=== PATIENT | male | born 1960 | race Caucasian/White ===

== ENCOUNTER 2019-01-12 19:46 | Emergency (ER) | payer MEDICAID ==
[~2019-01-12] VITALS: Ht 170.2 cm; Wt 78.9 kg
[2019-01-12 19:48] VITALS: BP 128/74
--- NOTE | 2019-01-12 19:48 | NUR ---
PT TAKEN TO BED 08 VIA GURNEY. AMBULATED TO BED WITH STEADY GAIT.
--- NOTE | 2019-01-12 20:01 | NUR ---
58 Y/O MALE BIB [facility]. PRESENTS TO ED, C/O ANXIETY AND HYPERGLYCEMIA, 348 UPON ARRIVAL. PT STATES HE STARTED HAVING ANXIETY WITH CHEST PAIN 5/10 AT WORK. PAIN DOES NOT RADIATE. PT DENIES ANY SOB/RESPIRATORY DISTRESS. PT STABLE AT ARRIVAL. ERMD AWARE. WILL CONTINUE TO MONITOR.
[2019-01-12] MEDS ORDERED: NACL 0.9% 1,000 ML IV ONE (20:40)
[2019-01-12] MEDS ORDERED: KETOROLAC 30 MG/ML VIAL IVP ONE (20:40)
[2019-01-12 21:04] LABS: BASOPHILS # (AUTO) 0.1 K/uL (0.00-0.22); BASOPHILS % (AUTO) 0.9 % (0.0-2.0); EOSINOPHILS # (AUTO) 0.2 K/uL (0-0.4); EOSINOPHILS % (AUTO) 2.8 % (0.0-4.0); HEMATOCRIT 40.4 % (36-52); HEMOGLOBIN 14.1 g/dL (12.0-18.0); LYMPHOCYTES # (AUTO) 2.4 K/uL (2.0-11.5); LYMPHOCYTES % (AUTO) 36.3 % (20.5-51.1); MEAN CORPUSCULAR HEMOGLOBIN 33 pg (27-31); MEAN CORPUSCULAR HGB CONC 35 g/dL (33-37); MONOCYTES # (AUTO) 0.6 K/uL (0.8-1.0); MONOCYTES % (AUTO) 9.8 % (1.7-9.3); NEUTROPHILS # (AUTO) 3.3 K/uL (1.8-7.7); NEUTROPHILS % (AUTO) 50.2 % (42.2-75.2); PLATELET COUNT (AUTO) 215 K/uL (140-450); RED BLOOD CELL COUNT(AUTO) 4.34 MIL/uL (4.20-6.10); RED CELL DISTRIBUTION WIDTH 12.8 % (11.6-13.7); WHITE BLOOD COUNT (AUTO) 6.5 K/uL (4.8-10.8)
[2019-01-12 21:27] LABS: ANION GAP 12.7 (8-16); CARBON DIOXIDE 26.6 mmol/L (21-32); CREATININE 0.8 mg/dL (0.7-1.3); POTASSIUM 4.3 mmol/L (3.5-5.1)
[2019-01-12 21:33] LABS: ALBUMIN 3.6 g/dL (3.4-5.0); TOTAL BILIRUBIN 0.4 mg/dL (0.0-1.0)
[2019-01-12] MEDS ORDERED: INSULIN REGULAR, HUMAN 100 UNIT/ML VIAL IVP ONE (22:00)
[2019-01-12 22:10] VITALS: BP 121/77
--- NOTE | 2019-01-12 22:10 | NUR ---
PT DISCHARGED WITH PAPERWORK. RX MOTRIN FOR PAIN. EDUCATED PT REGARDING MEDICATIONS AND S/E. EDUCATED PT REGARDING D/C DIAGNOSIS AND INSTRUCTIONS. PT VERBALIZED UNDERSTANDING OF TEACHING. TOLD PT TO FOLLOW UP WITH PCP AND WHEN TO RETURN TO ED. PT VSS. ALL QUESTIONS ANSWERED.
== END 2019-01-12 22:10 | disposition home or self-care (01) ==
LOC: MED 19:46
DX: E11.65 Type 2 diabetes mellitus with hyperglycemia (principal); M25.561 Pain in right knee; R07.89 Other chest pain; R10.84 Generalized abdominal pain
CPT/HCPCS: 36415; 71045; 80053; 84484; 85025; 96361; 96374; 96375; 99284; J1815; J1885; J7030; 93005

== ENCOUNTER 2019-02-01 11:07 | Emergency (ER) | payer MEDICAID ==
[~2019-02-01] VITALS: Ht 167.6 cm; Wt 78.5 kg
[2019-02-01 11:07] VITALS: BP 132/88
--- NOTE | 2019-02-01 11:07 | NUR ---
Patient BIBA ALS, transferred to bed 9. RN evaluating patient at bedside.
--- NOTE | 2019-02-01 11:15 | NUR ---
Assumed patient care, nursing assessment completed. Patient c/o sudden onset CP that started this morning, accompanied with palpitations.
--- NOTE | 2019-02-01 11:17 | NUR ---
Dr. Miles is evaluating the patient at bedside.
[2019-02-01] MEDS ORDERED: ASPIRIN 325 MG TAB PO ONE (11:30)
--- NOTE | 2019-02-01 11:32 | NUR ---
build technician at bedside.
[2019-02-01 12:20] LABS: BASOPHILS # (AUTO) 0.1 K/uL (0.00-0.22); BASOPHILS % (AUTO) 1.1 % (0.0-2.0); EOSINOPHILS # (AUTO) 0.1 K/uL (0-0.4); HEMATOCRIT 42.8 % (36-52); HEMOGLOBIN 14.9 g/dL (12.0-18.0); LYMPHOCYTES # (AUTO) 2.3 K/uL (2.0-11.5); LYMPHOCYTES % (AUTO) 35.3 % (20.5-51.1); MEAN CORPUSCULAR HEMOGLOBIN 32 pg (27-31); MEAN CORPUSCULAR HGB CONC 35 g/dL (33-37); MEAN CORPUSCULAR VOLUME 92.9 fL (80-94); MONOCYTES # (AUTO) 0.6 K/uL (0.8-1.0); NEUTROPHILS # (AUTO) 3.4 K/uL (1.8-7.7); NEUTROPHILS % (AUTO) 52.6 % (42.2-75.2); PLATELET COUNT (AUTO) 220 K/uL (140-450); RED BLOOD CELL COUNT(AUTO) 4.61 MIL/uL (4.20-6.10); RED CELL DISTRIBUTION WIDTH 12.4 % (11.6-13.7); WHITE BLOOD COUNT (AUTO) 6.4 K/uL (4.8-10.8)
[2019-02-01 12:21] LABS: ANION GAP 11.7 (8-16); CARBON DIOXIDE 29.2 mmol/L (21-32); CREATININE 0.7 mg/dL (0.7-1.3); POTASSIUM 3.9 mmol/L (3.5-5.1)
[2019-02-01 12:27] LABS: ALBUMIN 3.8 g/dL (3.4-5.0); TOTAL BILIRUBIN 0.5 mg/dL (0.0-1.0)
[2019-02-01 12:55] VITALS: BP 117/75
--- NOTE | 2019-02-01 12:57 | NUR ---
Dispo and medical decision making, DC home with instructions regarding atypical CP, advised to follow up with PMD. Denies pain at this time, VS WNL.
== END 2019-02-01 12:57 | disposition home or self-care (01) ==
LOC: MED 11:07
DX: R07.89 Other chest pain (principal); R06.02 Shortness of breath; R42 Dizziness and giddiness; E11.9 Type 2 diabetes mellitus without complications; F41.9 Anxiety disorder, unspecified
CPT/HCPCS: 36415; 71045; 80053; 84484; 85025; 93005; 99284; Q0092

== ENCOUNTER 2020-03-19 20:55 | Emergency (ER) | payer MEDICAID ==
[~2020-03-19] VITALS: Ht 162.6 cm; Wt 78.5 kg
--- NOTE | 2020-03-19 21:03 | NUR ---
PT BIBA BLS. TAKEN TO BED 11 Addendum: 03/19/20 at 2126 by YOEL PT BIBA ALS
[2020-03-19 21:05] VITALS: BP 131/80
--- NOTE | 2020-03-19 21:05 | NUR ---
59 YO M BIBA FOR C/C OF CHEST PAIN THAT STARTED AT 3AM. STABBING PAIN 4/10, SUBSTERNAL RADIATES TO BOTH SIDES OF CHEST, STARTED AT REST. DENIES SOB, VISUAL CHANGES, AND H/A. ASA AND NITRO GIVEN ON ROUTE, NO RELIEF. 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 PT IS SITTING UP IN BED, REQUESTED A SNACK. PT IS IN STABLE CONDITION. HX: HTN AND DM RX: HYDROXYZINE, CETIRIZINE, SERTRALINE DENIES ALLERGIES
--- NOTE | 2020-03-19 21:45 | NUR ---
ERMD AT BEDSIDE
[2020-03-19] MEDS: KETOROLAC 30 MG/ML VIAL IVP ONE (21:50)
--- NOTE | 2020-03-19 21:53 | NUR ---
RAD AT BEDSIDE
[2020-03-19 22:40] VITALS: BP 122/68
--- NOTE | 2020-03-19 22:40 | NUR ---
Patient discharged with v/s stable. Written and verbal after care instructions given and explained. Patient alert, oriented and verbalized understanding of instructions. Ambulatory with steady gait. All questions addressed prior to discharge. ID band removed. Patient advised to follow up with PMD. Rx of LIDODERM AND NAPROSYN given. Patient educated on indication of medication including possible reaction and side effects. Opportunity to ask questions provided and answered.
== END 2020-03-19 22:40 | disposition home or self-care (01) ==
LOC: MED 20:55
DX: R07.89 Other chest pain (principal)
CPT/HCPCS: 71045; 93005; 96375; 99283; J1885; 96374

== ENCOUNTER 2020-04-01 00:10 | Emergency (ER) | payer MEDICAID ==
[~2020-04-01] VITALS: Ht 152.4 cm; Wt 72.6 kg
--- NOTE | 2020-04-01 02:15 | NUR ---
SEEN AND EXAMINED BY [place] WITH ORDERS AND CARRIED OUT
[2020-04-01 02:23] VITALS: BP 160/99
[2020-04-01] MEDS ORDERED: ASPIRIN 325 MG TAB PO ONE (02:25)
[2020-04-01] MEDS ORDERED: PANTOPRAZOLE 40 MG TABEC PO ONE (02:25)
[2020-04-01] MEDS ORDERED: KETOROLAC 30 MG/ML VIAL IM ONE (02:25)
[2020-04-01 02:46] LABS: BASOPHILS # (AUTO) 0.1 K/uL (0.00-0.22); BASOPHILS % (AUTO) 1.3 % (0.0-2.0); EOSINOPHILS # (AUTO) 0.3 K/uL (0-0.4); EOSINOPHILS % (AUTO) 3.4 % (0.0-4.0); HEMATOCRIT 39.5 % (36-52); HEMOGLOBIN 13.8 g/dL (12.0-18.0); LYMPHOCYTES # (AUTO) 3.7 K/uL (2.0-11.5); LYMPHOCYTES % (AUTO) 37.3 % (20.5-51.1); MEAN CORPUSCULAR HEMOGLOBIN 32 pg (27-31); MEAN CORPUSCULAR HGB CONC 35 g/dL (33-37); MEAN CORPUSCULAR VOLUME 92.3 fL (80-94); MONOCYTES # (AUTO) 0.9 K/uL (0.8-1.0); MONOCYTES % (AUTO) 8.7 % (1.7-9.3); NEUTROPHILS # (AUTO) 4.9 K/uL (1.8-7.7); NEUTROPHILS % (AUTO) 49.3 % (42.2-75.2); PLATELET COUNT (AUTO) 283 K/uL (140-450); RED BLOOD CELL COUNT(AUTO) 4.28 MIL/uL (4.20-6.10); RED CELL DISTRIBUTION WIDTH 13.2 % (11.6-13.7); WHITE BLOOD COUNT (AUTO) 9.9 K/uL (4.8-10.8)
--- NOTE | 2020-04-01 03:10 | NUR ---
MEDICATED PER ERMDS ORDER, TOLERATED WELL.
[2020-04-01 04:30] LABS: ALBUMIN 4.4 g/dL (3.4-5.0); ANION GAP 11.3 (8-16); CARBON DIOXIDE 27.2 mmol/L (21-32); POTASSIUM 3.5 mmol/L (3.5-5.1); TOTAL BILIRUBIN 0.4 mg/dL (0.0-1.0)
[2020-04-01 09:07] VITALS: BP 113/68
--- NOTE | 2020-04-01 09:07 | NUR ---
Patient discharged with v/s stable. Written and verbal after care instructions given and explained. Patient verbalized understanding. Ambulatory with steady gait. All questions addressed prior to discharge. Advised to follow up with PMD.
== END 2020-04-01 09:07 | disposition home or self-care (01) ==
LOC: MED 00:10
DX: R00.2 Palpitations (principal)
CPT/HCPCS: 36415; 71045; 80053; 84484; 85025; 93005; 96372; 99284; J1885

== ENCOUNTER 2020-04-13 18:41 | Emergency (ER) | payer MEDICAID ==
[~2020-04-13] VITALS: Ht 170.2 cm; Wt 76.2 kg
[2020-04-13 18:46] VITALS: BP 143/90
[2020-04-13 19:34] LABS: BASOPHILS # (AUTO) 0.1 K/uL (0.00-0.22); EOSINOPHILS # (AUTO) 0.1 K/uL (0-0.4); EOSINOPHILS % (AUTO) 1.7 % (0.0-4.0); HEMATOCRIT 39.4 % (36-52); HEMOGLOBIN 13.7 g/dL (12.0-18.0); LYMPHOCYTES # (AUTO) 1.8 K/uL (2.0-11.5); LYMPHOCYTES % (AUTO) 23.3 % (20.5-51.1); MEAN CORPUSCULAR HEMOGLOBIN 32 pg (27-31); MEAN CORPUSCULAR HGB CONC 35 g/dL (33-37); MEAN CORPUSCULAR VOLUME 91.5 fL (80-94); MONOCYTES # (AUTO) 0.6 K/uL (0.8-1.0); MONOCYTES % (AUTO) 8.1 % (1.7-9.3); NEUTROPHILS % (AUTO) 65.9 % (42.2-75.2); PLATELET COUNT (AUTO) 249 K/uL (140-450); RED CELL DISTRIBUTION WIDTH 12.9 % (11.6-13.7); WHITE BLOOD COUNT (AUTO) 7.6 K/uL (4.8-10.8)
[2020-04-13 19:52] LABS: CARBON DIOXIDE 24.9 mmol/L (21-32); POTASSIUM 3.9 mmol/L (3.5-5.1)
[2020-04-14 00:20] VITALS: BP 106/65
== END 2020-04-14 00:20 | disposition home or self-care (01) ==
LOC: MED 18:41
DX: R07.9 Chest pain, unspecified (principal); R51.9 Headache, unspecified; R06.02 Shortness of breath; E11.9 Type 2 diabetes mellitus without complications; I10 Essential (primary) hypertension; K21.9 Gastro-esophageal reflux disease without esophagitis; E78.00 Pure hypercholesterolemia, unspecified
CPT/HCPCS: 36415; 71045; 80048; 84484; 85025; 93005; 99285

== ENCOUNTER 2020-12-04 22:12 | Emergency (ER) | payer MEDICAID ==
[~2020-12-04] VITALS: Ht 160 cm; Wt 81.3 kg
[2020-12-04 22:24] VITALS: BP 125/62
--- NOTE | 2020-12-04 22:27 | NUR ---
TO LOBBY A/W BED AMBULATORY
--- NOTE | 2020-12-04 23:17 | NUR ---
PT AMBULATED TO BED 12
--- NOTE | 2020-12-04 23:30 | NUR ---
PT. IS A 59 Y/O MALE THAT CAME INTO ED WITH C/O OF LEFT SIDED CHEST PAIN. PT. STATES THAT THE PAIN IS 9/10 ON THE PAIN SCALE AT THIS TIME. WHEN ASKED TO DESCRIBE PAIN, PT. STATES THAT THERE IS A "PRESSURE" AND IS LOCALIZED TO THE LEFT SIDE OF THE CHEST. DENIES N/V/D; SKIN IS PINK/WARM/DRY; AAOX4 WITH EVEN AND STEADY GAIT; HR EVEN AND REGULAR; PT DENIES ANY FEVER, CP, SOB, OR COUGH AT THIS TIME; VSS; PATIENT POSITIONED FOR COMFORT; HOB ELEVATED; BEDRAILS UP X2; BED DOWN. ER MD MADE AWARE OF PT STATUS. PMH: DIABETES ALLERGIES: NKA
--- NOTE | 2020-12-05 00:13 | NUR ---
LAB AT BEDSIDE
--- NOTE | 2020-12-05 00:18 | NUR ---
XRAY AT BEDSIDE
[2020-12-05 00:26] LABS: BASOPHILS % (AUTO) 0.7 % (0.0-2.0); EOSINOPHILS # (AUTO) 0.3 K/uL (0-0.4); EOSINOPHILS % (AUTO) 4.1 % (0.0-4.0); HEMATOCRIT 40.8 % (36-52); LYMPHOCYTES % (AUTO) 28.9 % (20.5-51.1); MEAN CORPUSCULAR HEMOGLOBIN 32 pg (27-31); MEAN CORPUSCULAR HGB CONC 34 g/dL (33-37); MONOCYTES # (AUTO) 0.8 K/uL (0.8-1.0); MONOCYTES % (AUTO) 10.7 % (1.7-9.3); NEUTROPHILS # (AUTO) 3.9 K/uL (1.8-7.7); NEUTROPHILS % (AUTO) 55.6 % (42.2-75.2); PLATELET COUNT (AUTO) 266 K/uL (140-450); RED BLOOD CELL COUNT(AUTO) 4.39 MIL/uL (4.20-6.10); RED CELL DISTRIBUTION WIDTH 13.1 % (11.6-13.7)
[2020-12-05 00:34] LABS: CARBON DIOXIDE 26.5 mmol/L (21-32); CREATININE 0.9 mg/dL (0.6-1.3); POTASSIUM 4.5 mmol/L (3.5-5.1)
--- NOTE | 2020-12-05 03:00 | NUR ---
PT. LAYING IN SUPINE POSITION, VOICES NO COMPLAINTS AT THIS TIME. HR EVEN AND REGULAR
--- NOTE | 2020-12-05 06:10 | NUR ---
PT. IN SUPINE POSITION, RESTING WITH EYES CLOSED. AWAITING DISPOSITION
--- NOTE | 2020-12-05 06:45 | NUR ---
PT. REFUSING LAB WORK DONE. PT. REQUESTING TO LEAVE [place] STORM MADE AWARE.
--- NOTE | 2020-12-05 07:34 | NUR ---
REPORT GIVEN TO JAZMÍN CORBIN. TRANSFER OF CARE AT THIS TIME.
[2020-12-05 07:38] VITALS: BP 112/66
--- NOTE | 2020-12-05 07:40 | NUR ---
Patient does not wish to proceed with medical care recommended by DR CASTANO. Patient given information related to possible complications, up to and including , which could occur as a result of leaving hospital at this time. Patient verbalizes understanding of risks involved leaving against medical advice. Patient has signed AMA form.DR CASTANO PROVIDED DISCHARGE PAPERS ABOUT NONSPECIFIC CHEST PAIN
== END 2020-12-05 07:40 | disposition left against medical advice (07) ==
LOC: MED 22:12
DX: R07.9 Chest pain, unspecified (principal); E11.9 Type 2 diabetes mellitus without complications; K21.9 Gastro-esophageal reflux disease without esophagitis; I10 Essential (primary) hypertension
CPT/HCPCS: 36415; 71045; 80048; 84484; 85025; 93005; 99285; Q0092

== ENCOUNTER 2021-03-29 14:00 | Emergency (ER) | payer MEDICAID ==
[~2021-03-29] VITALS: Ht 160 cm; Wt 70.3 kg
[2021-03-29 14:10] VITALS: BP 133/92
--- NOTE | 2021-03-29 16:40 | NUR ---
PATIENT LEFT WITHOUT BEING SEEN BY DR. HEMPHILL. NO FURTHER CARE PROVIDED FOR PATIENT.
== END 2021-03-29 16:40 | disposition left against medical advice (07) ==
LOC: MED 14:00
DX: R07.9 Chest pain, unspecified (principal); Z53.21 Procedure and treatment not carried out due to patient leaving prior to being seen by health care provider
CPT/HCPCS: 93005

== ENCOUNTER 2021-11-28 22:53 | Observation (INO) | payer MEDICAID, OTHER ==
[~2021-11-28] VITALS: Ht 157.5 cm; Wt 78.0 kg
[2021-11-28 22:59] VITALS: BP 128/68
[2021-11-29] MEDS ORDERED: NITROGLYCERIN 2% 1 GM PKT TP ONE (01:55)
[2021-11-29] MEDS ORDERED: ASPIRIN 325 MG TAB PO ONE (01:55)
[2021-11-29] MEDS ORDERED: ENOXAPARIN 80 MG/0.8 ML SYR SUBQ ONE (01:55)
[2021-11-29 02:15] LABS: BASOPHILS # (AUTO) 0.1 K/uL (0.00-0.22); EOSINOPHILS # (AUTO) 0.3 K/uL (0-0.4); EOSINOPHILS % (AUTO) 3.8 % (0.0-4.0); HEMATOCRIT 39.2 % (36-52); HEMOGLOBIN 13.5 g/dL (12.0-18.0); LYMPHOCYTES # (AUTO) 3.2 K/uL (2.0-11.5); LYMPHOCYTES % (AUTO) 37.2 % (20.5-51.1); MEAN CORPUSCULAR HEMOGLOBIN 32 pg (27-31); MEAN CORPUSCULAR HGB CONC 34 g/dL (33-37); MONOCYTES # (AUTO) 0.9 K/uL (0.8-1.0); MONOCYTES % (AUTO) 10.3 % (1.7-9.3); NEUTROPHILS # (AUTO) 4.1 K/uL (1.8-7.7); NEUTROPHILS % (AUTO) 47.7 % (42.2-75.2); PLATELET COUNT (AUTO) 221 K/uL (140-450); RED BLOOD CELL COUNT(AUTO) 4.26 MIL/uL (4.20-6.10); RED CELL DISTRIBUTION WIDTH 13.3 % (11.6-13.7); WHITE BLOOD COUNT (AUTO) 8.6 K/uL (4.8-10.8)
--- NOTE | 2021-11-29 02:15 | NUR ---
RECEIVED PT IN BED 6 WITH C/O CHEST PAIN x 1 MONTH MEDHX- DM, HDL NKA
[2021-11-29 02:32] LABS: ALBUMIN 3.6 g/dL (3.4-5.0); ANION GAP 13.1 (8-16); POTASSIUM 4.1 mmol/L (3.5-5.1); TOTAL BILIRUBIN 0.6 mg/dL (0.0-1.0)
--- NOTE | 2021-11-29 03:00 | NUR ---
SHAWNEE SWAB OBTAINED AND SENT TO LAB
--- NOTE | 2021-11-29 04:00 | NUR ---
AWAKE, DENIES PAIN OR DISCOMFORT. PT AWARE OF ADMISSION
[2021-11-29] MEDS ORDERED: KCL 20 MEQ/WATER INJ PREMIX 200 ML IV PRN (04:50)
[2021-11-29] MEDS ORDERED: HYDROcodone/APAP 5/325 MG 1 TAB TAB PO PRN (04:50)
[2021-11-29] MEDS ORDERED: ONDANSETRON 4 MG/2 ML VIAL IVP PRN (04:50)
[2021-11-29] MEDS ORDERED: MAG SULF 2000 MG/WATER PREMIX 50 ML IV PRN (04:50)
[2021-11-29] MEDS ORDERED: MAGNESIUM OXIDE 400 MG TAB PO PRN (04:50)
[2021-11-29] MEDS ORDERED: DEXTROSE 50% 50 ML SYR IVP PRN (04:50)
[2021-11-29] MEDS ORDERED: MORPHINE SULFATE 4 MG/ML SYR IVP PRN (04:50)
[2021-11-29] MEDS ORDERED: ACETAMINOPHEN 325 MG TAB PO PRN (04:50)
[2021-11-29] MEDS ORDERED: POTASSIUM CHLORIDE 10 MEQ TABER PO PRN (04:50)
--- NOTE | 2021-11-29 06:00 | NUR ---
RESTING IN BED WITH EYES CLOSED, RESPIRATIONS REGULAR AND UNLABORED
--- NOTE | 2021-11-29 07:18 | NUR ---
RECEIVED REPORT FROM ANGEL NOYOLA, TRANSFER OF CARE AT THIS TIME. PT RESTING IN BED, A/O X4, GCS 15, EVEN AND UNLABORED RESPIRATIONS. PT CAME IN C/O CHEST PAIN. PT IS A TELEMETRY ADMIT FOR CHEST PAIN R/O ACS. PT DENIES CHEST PAIN AT THIS TIME. 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 ALL NEEDS MET.
[2021-11-29] MEDS: BLOOD GLUCOSE MONITORING 1 DEV DEV FS SCH ×2 (07:42→12:30)
[2021-11-29] MEDS: INSULIN LISPRO SLIDING SCALE 100 UNITS/ML VIAL SUBQ PRN ×2 (07:55→12:36)
--- NOTE | 2021-11-29 08:39 | NUR ---
PT PROVIDED WITH BREAKFAST AT THIS TIME, ALL NEEDS MET
--- NOTE | 2021-11-29 08:46 | NUR ---
PATIENT HAS BEEN SCREENED AND CATEGORIZED LOW NUTRITION RISK. PATIENT WILL BE SEEN WITHIN 7 DAYS OF ADMISSION. 11/30/21-12/06/[address]
[2021-11-29] MEDS ORDERED: ENOXAPARIN 40 MG/0.4 ML SYR SUBQ SCH (09:00)
--- NOTE | 2021-11-29 10:37 | NUR ---
DR STERN AT BEDSIDE EVALUATING PT
--- NOTE | 2021-11-29 12:01 | NUR ---
WHEEL TRUER AT BEDSIDE
--- NOTE | 2021-11-29 13:10 | NUR ---
PT PROVIDED LUNCH AT THIS TIME. ALL NEEDS MET
--- NOTE | 2021-11-29 13:32 | NUR ---
MRSA SWAB COLLECTED AND HANDED TO BRENDA EARL TECH
[2021-11-29 14:05] VITALS: BP 101/68
--- NOTE | 2021-11-29 14:50 | NUR ---
IV removed, catheter intact and site benign. Applied folded 4x4 gauze and tape to stop bleeding.
--- NOTE | 2021-11-29 14:53 | NUR ---
PT CLEARED FOR DISCHARGE BY DR STERN. PT CLEARED BY CARDIO. DISCHARGE INSTUCTIONS GIVEN. PT VERBALIZED UNDERSTANDING. PT EDUCATED TO FOLLOW UP WITH PCP AND CONTINUE HOME MEDICATIONS. VSS.
[2021-11-29] MEDS ORDERED: ATORVASTATIN 20 MG TAB PO SCH (21:00)
== END 2021-11-29 14:53 | disposition home or self-care (01) ==
LOC: MED 22:53 → MTU 11-29 04:46
PROVIDERS: ADMIT Internal Medicine; ATTEND Internal Medicine
DX: R07.89 Other chest pain (principal); Z20.822 Contact with and (suspected) exposure to COVID-19; I25.119 Atherosclerotic heart disease of native coronary artery with unspecified angina pectoris; E78.5 Hyperlipidemia, unspecified; E11.9 Type 2 diabetes mellitus without complications; K21.9 Gastro-esophageal reflux disease without esophagitis; E66.9 Obesity, unspecified; Z79.899 Other long term (current) drug therapy
CPT/HCPCS: 36415; 71045; 80053; 83880; 84484; 85025; 85379; 87081; 87426; 93005; 93307; 96372; 99291; G0378; J1650; C8929

== ENCOUNTER 2021-12-09 11:52 | Emergency (ER) | payer OTHER ==
[~2021-12-09] VITALS: Ht 157.7 cm; Wt 77.8 kg
[2021-12-09 12:10] VITALS: BP 122/66
--- NOTE | 2021-12-09 12:16 | NUR ---
PT AMB TO BED 11.
--- NOTE | 2021-12-09 13:25 | NUR ---
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 STATES EPISODE STARTED WHILE AT WORK, PATIENT DENIES COUGH, SOB, CP, N/V/D. DENIES DRUG OR ALCOHOL USE REPORTS DRINKING COFFEE TODAY BUT NOT MORE THAN USUAL.
[2021-12-09 13:40] LABS: BASOPHILS # (AUTO) 0.1 K/uL (0.00-0.22); BASOPHILS % (AUTO) 1.1 % (0.0-2.0); EOSINOPHILS # (AUTO) 0.3 K/uL (0-0.4); EOSINOPHILS % (AUTO) 3.2 % (0.0-4.0); HEMATOCRIT 40.7 % (36-52); HEMOGLOBIN 13.9 g/dL (12.0-18.0); LYMPHOCYTES # (AUTO) 2.7 K/uL (2.0-11.5); LYMPHOCYTES % (AUTO) 35.2 % (20.5-51.1); MEAN CORPUSCULAR HEMOGLOBIN 32 pg (27-31); MEAN CORPUSCULAR HGB CONC 34 g/dL (33-37); MEAN CORPUSCULAR VOLUME 93.2 fL (80-94); MONOCYTES # (AUTO) 0.8 K/uL (0.8-1.0); MONOCYTES % (AUTO) 9.6 % (1.7-9.3); NEUTROPHILS % (AUTO) 50.9 % (42.2-75.2); PLATELET COUNT (AUTO) 253 K/uL (140-450); RED BLOOD CELL COUNT(AUTO) 4.36 MIL/uL (4.20-6.10); RED CELL DISTRIBUTION WIDTH 13.3 % (11.6-13.7); WHITE BLOOD COUNT (AUTO) 7.8 K/uL (4.8-10.8)
[2021-12-09 14:16] LABS: ALBUMIN 3.8 g/dL (3.4-5.0); ANION GAP 15.4 (8-16); CARBON DIOXIDE 25.8 mmol/L (21-32); CREATININE 0.9 mg/dL (0.6-1.3); POTASSIUM 4.2 mmol/L (3.5-5.1); TOTAL BILIRUBIN 0.4 mg/dL (0.0-1.0)
[2021-12-09 14:35] LABS: PROTHROMBIN TIME 10.2 secs (10.8-13.4)
[2021-12-09 15:47] VITALS: BP 104/65
--- NOTE | 2021-12-09 15:47 | NUR ---
Patient discharged with v/s stable. Written and verbal after care instructions ABOUT PALPITATIONS given and explained. Patient verbalized understanding. Ambulatory with steady gait. All questions addressed prior to discharge. Advised to follow up with PMD.
== END 2021-12-09 15:47 | disposition home or self-care (01) ==
LOC: MED 11:52
DX: R00.2 Palpitations (principal); E11.9 Type 2 diabetes mellitus without complications; K21.9 Gastro-esophageal reflux disease without esophagitis; I10 Essential (primary) hypertension
CPT/HCPCS: 36415; 71045; 80053; 82948; 83880; 84484; 85025; 85610; 85730; 93005; 99285; Q0092